=== PATIENT | male | born 1975 | race Two or more races ===

== ENCOUNTER 2024-06-13 18:53 | Emergency (ER) | payer BC ==
[2024-06-13] MEDS: Ketorolac 30 MG/ML SDV IM ONE (19:24)
[2024-06-13] MEDS: Amoxicillin/Clavulanate K 875-125 MG Tab PO ONE (20:38)
== END 2024-06-13 20:41 | disposition home or self-care (01) ==
LOC: MW.ED 18:53
DX: J32.9 Chronic sinusitis, unspecified (principal); Z75.8 Other problems related to medical facilities and other health care; Z79.899 Other long term (current) drug therapy
CPT/HCPCS: 71046; 87428; 87651; 96372; 99284; A9270; J1885